=== PATIENT | male | born 1945 | race Caucasian/White ===

== ENCOUNTER 2022-09-03 14:24 | Emergency (ER) | payer MEDICARE, OTHER ==
[~2022-09-03] VITALS: Ht 175.3 cm; Wt 83.9 kg
--- NOTE | 2022-09-03 14:40 | NUR ---
pt terry from home to er bed 07 c/o r side upper back pain and swelling and its worst today. was seen by pmd and ultrasound was done concerning of lipoma. denies any recent injury. stable vitals. nad noted. awaiting md walters.
--- NOTE | 2022-09-03 15:13 | NUR ---
dr rizvi at bedside for eval.
--- NOTE | 2022-09-03 15:50 | NUR ---
computer lab para professional at bedside for blood draw.
[2022-09-03 16:06] LABS: EOSINOPHILS % (AUTO) 14.3 % (0.0-6.0); HEMATOCRIT 35 % (39-51); HEMOGLOBIN 10.4 g/dL (13.5-17.5); LYMPHOCYTES % (AUTO) 71.4 % (20.0-44.0); MEAN CORPUSCULAR HGB CONC 30 g/dl (31.0-36.0); MEAN CORPUSCULAR VOLUME 91 fL (80-96); NEUTROPHILS # (AUTO) 6.2 K/uL (1.8-8.9); NEUTROPHILS % (AUTO) 14.3 % (43.0-81.0); RED BLOOD CELL COUNT(AUTO) 3.82 MIL/uL (4.5-6.0)
[2022-09-03 16:12] LABS: CALCIUM, SERUM 8.8 mg/dL (8.5-10.1); CARBON DIOXIDE 25 mmol/L (21-32); CHLORIDE 101 mmol/L (98-107); GLUCOSE 163 mg/dL (74-106); POTASSIUM 5.3 mmol/L (3.5-5.1); SODIUM SERUM 136 mmol/L (136-145); UREA NITROGEN, BLOOD 34 mg/dL (7-18)
--- NOTE | 2022-09-03 16:20 | NUR ---
family refused ct chest with contrast. dr rizvi aware
[2022-09-03] MEDS ORDERED: HYDROCODONE/APAP 5/325MG TABLET PO ONE (17:00)
[2022-09-03] MEDS ORDERED: HYDROCODONE/APAP 5/325MG TABLET ONE (17:04)
[2022-09-03] MEDS ORDERED: ACETAMINOPHEN ES 500 MG TABLET ONE (17:09)
[2022-09-03 17:16] LABS: PLATELET COUNT (AUTO) 1372 K/uL (150-450); WHITE BLOOD COUNT (AUTO) 43.5 K/uL (4.3-11.0)
--- NOTE | 2022-09-03 17:24 | NUR ---
DR. GIRON SPEAKING WITH DR. COX.
[2022-09-03] MEDS ORDERED: ACETAMINOPHEN 325 MG TABLET PO ONE (17:30)
[2022-09-03] MEDS ORDERED: FINA5TAB11 PO (17:39)
[2022-09-03] MEDS ORDERED: JAKAFI PO (17:39)
[2022-09-03] MEDS ORDERED: TAMS-12 PO (17:39)
[2022-09-03] MEDS ORDERED: ASPI-1169 PO (17:39)
[2022-09-03] MEDS ORDERED: ROSU10TA2 PO (17:39)
--- NOTE | 2022-09-03 19:10 | NUR ---
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
--- NOTE | 2022-09-03 19:23 | NUR ---
iv saline lock established. lfa 20g.
--- NOTE | 2022-09-03 20:42 | NUR ---
[place] [phone]
--- NOTE | 2022-09-03 20:42 | NUR ---
SPOKE WITH DR. GIRON OVER THE PHONE THAT HE HAVE ACCEPTED THE PT AND WANTS TO TRANSFER TO [facility]. CALLED [facility] AND SPOKE WITH JUNITO, FROM INTAKE AND REQUESTED CLINICALS TO BE FAXED TO [phone]
--- NOTE | 2022-09-03 20:54 | NUR ---
JANINE CALLED BACK AND HAS NO BED ACCOMMODATION AT THE MOMENT
[2022-09-03] MEDS ORDERED: ONDANSETRON HCL/PF 4 MG/2 ML VIAL IV ONE (22:00)
[2022-09-03] MEDS ORDERED: MORPHINE SULFATE INJ 2 MG/ML DISP.SYRIN IV ONE (22:00)
--- NOTE | 2022-09-03 22:05 | NUR ---
CLINICALS FAXED TO JANNIE AT [phone].
[2022-09-03] MEDS ORDERED: ONDANSETRON HCL/PF 4 MG/2 ML VIAL ONE (22:18)
[2022-09-03] MEDS ORDERED: MORPHINE SULFATE INJ 4 MG/ML DISP.SYRIN ONE (22:19)
--- NOTE | 2022-09-03 22:30 | NUR ---
LEXA MOONEY (DAUGHTER) - [phone]
--- NOTE | 2022-09-03 22:42 | NUR ---
CALLED DR. GIRON TO INFORM HIM THAT THERE IS NO BED AVAILABLE AT THE [facility]. INFORMED HIM THAT I WAS ADVISED BY THE [facility] C[facility] TO FOLLOW UP IN THE MORNING. CASE IS STILL OPEN. WILL FOLLOW UP IN THE MORNING.
--- NOTE | 2022-09-03 22:54 | NUR ---
CALLED THE PT'S DAUGHTER, LEXA, TO INFORM HER THAT THERE IS NO BED AVAILABILITY AT THE [facility]. SHE IS AWARE THAT WE WILL BE FOLLOWING UP IN THE MORNING FOR BED AVAILABILITY.
[2022-09-03] MEDS ORDERED: HYDROMORPHONE 1 MG/1 ML DISP.SYRIN IV ONE (23:30)
[2022-09-03] MEDS ORDERED: HYDROMORPHONE 1 MG/1 ML DISP.SYRIN ONE (23:31)
--- NOTE | 2022-09-04 02:59 | NUR ---
CHECKED ON PATIENT. SLEEPING, NO COMPLAINTS AT THE MOMENT.
--- NOTE | 2022-09-04 05:17 | NUR ---
CALLED [facility] TO FOLLOW UP ON ROOM AVAILABILITY. STILL NO ROOMS AVAILABLE AT THIS TIME. CASE IS STILL OPEN. SPOKE WITH KENDRA
--- NOTE | 2022-09-04 05:54 | NUR ---
DR HENNING MADE AWARE ABOUT PATIENT'S COMPLAINT OF EPIGASTRIC PAIN.
[2022-09-04 06:10] LABS: BAND % (MANUAL) 16 % (0.0-5.0); BASOPHILS % (MANUAL) 0 % (0.0-2.0); EOSINOPHILS % (MANUAL) 0 % (0-4); LYMPHOCYTES % (MANUAL) 8 % (16-48); MONOCYTES % (MANUAL) 30 % (0-11.0); NEUTROPHILS % (MANUAL) 46 (42-76)
[2022-09-04] MEDS ORDERED: FAMOTIDINE (20 MG) 20 MG TABLET ONE (06:39)
[2022-09-04] MEDS ORDERED: FAMOTIDINE (20 MG) 20 MG TABLET PO ONE (07:00)
--- NOTE | 2022-09-04 07:08 | NUR ---
REPORT GIVEN TO DENNY HAMLIN
--- NOTE | 2022-09-04 07:15 | NUR ---
RECEIVED PT FROM SAVANNAH SHEIKH C/O PAIN ON RT [facility] 04/01 NOTEFED
[2022-09-04] MEDS ORDERED: HYDROMORPHONE 1 MG/1 ML DISP.SYRIN ONE (07:39)
[2022-09-04] MEDS ORDERED: HYDROMORPHONE 1 MG/1 ML DISP.SYRIN IV ONE (08:00)
--- NOTE | 2022-09-04 08:09 | NUR ---
Patient does not wish to proceed with medical care recommended by ( ). Patient given information related to possible complications, up to and including , which could occur as a result of leaving the hospital at this time. Patient verbalizes understanding of risks involved due to leaving against medical advice. Patient has signed AMA form.
--- NOTE | 2022-09-04 08:15 | NUR ---
PT VOMITING UNDAGIGESIVE FOOD WITH LIGHT BRONISH COLOR NO PAIN NOTED
[2022-09-04 08:49] VITALS: BP 104/56
== END 2022-09-04 08:51 | disposition left against medical advice (07) ==
LOC: ER 16:12
DX: S20.211A Contusion of right front wall of thorax, initial encounter (principal); X58.XXXA Exposure to other specified factors, initial encounter; Y92.89 Other specified places as the place of occurrence of the external cause; D46.9 Myelodysplastic syndrome, unspecified; D75.839 Thrombocytosis, unspecified; Z20.822 Contact with and (suspected) exposure to COVID-19; Z86.73 Personal history of transient ischemic attack (TIA), and cerebral infarction without residual deficits; Z79.899 Other long term (current) drug therapy; Z79.82 Long term (current) use of aspirin; R73.9 Hyperglycemia, unspecified; N28.9 Disorder of kidney and ureter, unspecified; Z53.29 Procedure and treatment not carried out because of patient's decision for other reasons
CPT/HCPCS: 99291; 96374; 71250; 96375; 87426; 85025; 80048; 36415; 96376; 85007; J2270; J2405; J1170 ×2; C9803